=== PATIENT | female | born 1945 | race Caucasian/White ===

== ENCOUNTER 2016-11-08 15:11 | Emergency (ER) | payer OTHER ==
[~2016-11-08] VITALS: Ht 175.3 cm; Wt 88.0 kg
[~2016-11-08 15:11] MED LIST: ANTIVERT25 MG PO; FLUNISOLIDE25 ML NS; GABAPENTIN600 MG PO; LEVOTHROID125 MCG PO; MEDROL4 M1 PO; OMEPRAZOLE20 MG PO; PREDNISONE1 MG PO; SPIRIVA18 MCG IH; SYMBICORT 16010.2 GM IH
== END 2016-11-08 15:37 | disposition home or self-care (01) ==
LOC: ED 15:11
DX: Z00.8 Encounter for other general examination (principal)